=== PATIENT | male | born 1995 | race Caucasian/White ===

== ENCOUNTER 2017-01-31 14:21 | Emergency (ER) | payer MEDICAID | END 2017-01-31 15:23 | disposition home or self-care (01) | DX: M25.571 Pain in right ankle and joints of right foot (principal); X50.9XXA Other and unspecified overexertion or strenuous movements or postures, initial encounter; Y93.E1 Activity, personal bathing and showering; R03.0 Elevated blood-pressure reading, without diagnosis of hypertension; Z86.718 Personal history of other venous thrombosis and embolism; F17.200 Nicotine dependence, unspecified, uncomplicated ==

== ENCOUNTER 2017-12-29 11:00 | Emergency (ER) | payer MEDICAID ==
--- NOTE | 2017-12-29 12:06 | ED Physician Documentation ---
PD HPI LOWER EXT INJURY - Stated complaint Stated Complaint: KNEE PX - Chief complaint Chief Complaint: Ext Problem - History obtained from History obtained from: Patient - History of Present Illness PD HPI LOW EXT INJURY LOCATION: Right, Knee Type of injury: Fall, Twist Where injury occurred: Home Timing - onset: How many days ago (2) Timing - duration: Days Timing - details: Abrupt onset, Still present Worsened by: Moving, Palpating, Other (walking/weight bearing) Associated symptoms: Swelling. No: Weakness, Numbness Contributing factors: Prior ortho surgery (of the right ankle, not of the knee.) . No: Anticoagulated Similar symptoms before: Has not had sx before Recently seen: Not recently seen Review of Systems Constitutional: denies: Fever, Chills Skin: denies: Abrasion (s), Laceration (s) Musculoskeletal: reports: Joint swelling Neurologic: reports: Focal weakness. denies: Numbness PD PAST MEDICAL HISTORY - Past Medical History Past Medical History: Yes Cardiovascular: Deep vein thrombosis Respiratory: None Neuro: None Endocrine/Autoimmune: Other GI: None : None HEENT: None Psych: Anxiety Musculoskeletal: Other Derm: Eczema - Past Surgical History Past Surgical History: Yes Derm: Other - Present Medications Home Medications: Ambulatory Orders Medication Instructions Recorded Confirmed HYDROcod/ACETAM 5/325 [[place] 5/325] 1 tab PO Q6H PRN #20 tablet 12/29/17 Meloxicam [Mobic] 7.5 mg PO DAILY 12/29/17 busPIRone [Buspar] 10 mg PO BID 12/29/17 - Allergies Allergies/Adverse Reactions: Allergies Allergy/AdvReac Type Severity Reaction Status Date / Time Penicillins Allergy Severe Anaphylaxis Verified 12/29/17 11:09 - Social History Does the pt smoke?: Yes Smoking Status: Current every day smoker Does the pt drink ETOH?: No Does the pt have substance abuse?: No - Immunizations Immunizations are current?: No Immunizations: TDAP >10years/unknown, Other immun current - POLST Patient has POLST: No PD ED PE NORMAL - Vitals Vital signs reviewed: Yes - General General: Alert and oriented X 3, Well developed/nourished - Derm Derm: Normal color, Warm and dry, No rash - Extremities Extremities: No deformity, No edema, No calf tenderness / cord, Other (right knee with moderate effusion. Tender diffusely but mostly medially and popliteal. Guarded ROM and stress testing. Pain worst with valgus stress and feels loose c/w MCL tear. Hurts with ACL stress but not lax. Consider meniscal injury as well. No calf tenderness. ) - Neuro Neuro: Alert and oriented X 3, No motor deficit, No sensory deficit Results - Vitals Vitals: Vital Signs - 24 hr 12/29/17 12/29/17 11:07 12:28 Temperature 36.4 C L 37.0 C Heart Rate 82 75 Respiratory 18 12 Rate Blood Pressure 143/75 H 120/78 O2 Saturation 99 96 Oxygen O2 Source Room air PD MEDICAL DECISION MAKING - ED course Complexity details: considered differential (likely MCL injury and also consider ACL/emniscus. Will treat with knee brace and crutches and recheck with ortho in about a week. ), d/w patient Departure - Departure Disposition: 01 Home, Self Care Clinical Impression: Knee MCL sprain Qualifiers: Encounter type: initial encounter Laterality: right Qualified Code(s): S83.411A - Sprain of medial collateral ligament of right knee, initial encounter Internal knee problem Qualifiers: Laterality: right Qualified Code(s): M23.91 - Unspecified internal derangement of right knee Condition: Stable Record reviewed to determine appropriate education?: Yes Instructions: ED Sprain Knee Follow-Up: Brooke Madrigal ARNP [Primary Care Provider] - Papa Miller MD [Provider Admit Priv/Credential] - Prescriptions: HYDROcod/ACETAM 5/325 [[place] 5/325] 1 tab PO Q6H PRN #20 tablet PRN Reason: Pain Comments: Use a knee brace when up and around for the next 2-3 weeks likely. Use crutches initially as needed for comfort but is okay to progress weightbearing as able. Continue usual medications. Add Tylenol or hydrocodone if needed for pain. Call orthopedics Dr. Panda today for an appointment in about a week to reevaluate the ligaments and see if any imaging or further treatment is appropriate. Discharge Date/Time: 12/29/17 13:05
[2017-12-29 12:28] VITALS: BP 120/78
[2017-12-29] MEDS ORDERED: HYDROcod/ACETAM 5/325 MG TABLET PO STA (12:41)
== END 2017-12-29 13:05 | disposition home or self-care (01) ==
LOC: ED 11:00
DX: S83.411A Sprain of medial collateral ligament of right knee, initial encounter (principal); X50.1XXA Overexertion from prolonged static or awkward postures, initial encounter; Y92.009 Unspecified place in unspecified non-institutional (private) residence as the place of occurrence of the external cause; Z86.718 Personal history of other venous thrombosis and embolism; F17.200 Nicotine dependence, unspecified, uncomplicated
CPT/HCPCS: 99283; A9270

== ENCOUNTER 2018-04-19 16:09 | Emergency (ER) | payer MEDICAID ==
--- NOTE | 2018-04-19 16:55 | XRAY Report ---
Procedure Date: 04/19/2018 Accession Number: [id number] / [id number] Procedure: XR - Ankle 3 View RT CPT Code: FULL RESULT: EXAM: RIGHT ANKLE RADIOGRAPHY EXAM DATE: 04/19/2018 04:20 PM. CLINICAL HISTORY: Twisted ankle yesterday. COMPARISON: Concurrent foot radiograph. Right ankle radiographs 01/31/2017. TECHNIQUE: 3 views. FINDINGS: Bones: No fracture. No suspicious focal osseous lesion. Joints: Normal. No effusion. No subluxations. The ankle mortise is normally aligned. Soft Tissues: No focal soft tissue swelling appreciated. IMPRESSION: No acute osseous abnormality. RADIA
--- NOTE | 2018-04-19 16:57 | XRAY Report ---
Procedure Date: 04/19/2018 Accession Number: [id number] / [id number] Procedure: XR - Foot 3 View RT CPT Code: FULL RESULT: EXAM: RIGHT FOOT RADIOGRAPHY EXAM DATE: 04/19/2018 04:20 PM. CLINICAL HISTORY: History of foot surgery, pain after fall. COMPARISON: Concurrent right ankle radiographs. Right foot radiograph 03/18/2016. TECHNIQUE: 3 views. FINDINGS: Bones: No acute displaced fracture. No suspicious focal osseous lesion. Post interval resection of the accessory navicular. Joints: Normal. No subluxations. Soft Tissues: Normal. No soft tissue swelling. IMPRESSION: No acute osseous abnormality post remote resection of os navicular. RADIA
--- NOTE | 2018-04-19 16:57 | ED Physician Documentation ---
PD HPI LOWER EXT INJURY - Stated complaint Stated Complaint: R ANKLE INJ - Chief complaint Chief Complaint: Ext Problem - History obtained from History obtained from: Patient - History of Present Illness PD HPI LOW EXT INJURY LOCATION: Right, Ankle, Foot Type of injury: Twist Where injury occurred: Home Timing - onset: Today Timing - details: Abrupt onset, Still present Worsened by: Moving Associated symptoms: Swelling (mild). No: Weakness, Numbness Recently seen: Not recently seen Review of Systems Skin: denies: Abrasion (s), Laceration (s) Musculoskeletal: reports: Joint pain (around the back of the ankle) Neurologic: denies: Focal weakness, Numbness PD PAST MEDICAL HISTORY - Past Medical History Cardiovascular: Deep vein thrombosis Respiratory: None Endocrine/Autoimmune: Other GI: None : None HEENT: None Psych: Anxiety Musculoskeletal: Other Derm: Eczema - Past Surgical History Past Surgical History: Yes Derm: Other - Present Medications Home Medications: Ambulatory Orders Medication Instructions Recorded Confirmed HYDROcod/ACETAM 5/325 [[place] 5/325] 1 tab PO Q6H PRN #20 tablet 12/29/17 Meloxicam [Mobic] 7.5 mg PO DAILY 12/29/17 busPIRone [Buspar] 10 mg PO BID 12/29/17 HYDROcod/ACETAM 5/325 [[place] 5/325] 1 tab PO Q6H PRN #15 tablet 04/19/18 - Allergies Allergies/Adverse Reactions: Allergies Allergy/AdvReac Type Severity Reaction Status Date / Time Penicillins Allergy Severe Anaphylaxis Verified 12/29/17 11:09 - Social History Does the pt smoke?: Yes Smoking Status: Current every day smoker Does the pt drink ETOH?: No Does the pt have substance abuse?: No - Immunizations Immunizations are current?: No Immunizations: TDAP >10years/unknown, Other immun current - POLST Patient has POLST: No PD ED PE NORMAL - Vitals Vital signs reviewed: Yes - General General: Alert and oriented X 3, No acute distress, Well developed/nourished - Derm Derm: Normal color, Warm and dry, No rash - Extremities Extremities: Other (right ankle tender laterally and also in Achilles area but the tendon feels firma nd intact. ) - Neuro Neuro: No motor deficit, No sensory deficit Results - Vitals Vitals: Oxygen O2 Source Room air - Rads (name of study) foot and ankle xrays Radiology: Prelim report reviewed (no fractures), EMP read contemporaneously PD MEDICAL DECISION MAKING - ED course Complexity details: considered differential, d/w patient - Sepsis Event Vital Signs: Oxygen O2 Source Room air Departure - Departure Disposition: 01 Home, Self Care Clinical Impression: Ankle sprain Qualifiers: Encounter type: initial encounter Involved ligament of ankle: anterior talofibular ligament Laterality: right Qualified Code(s): S93.491A - Sprain of other ligament of right ankle, initial encounter Strain of Achilles tendon Qualifiers: Encounter type: initial encounter Laterality: right Qualified Code(s): S86.011A - Strain of right Achilles tendon, initial encounter Condition: Stable Record reviewed to determine appropriate education?: Yes Instructions: ED Sprain Ankle W X Ray Follow-Up: Brooke Madrigal ARNP [Primary Care Provider] - Prescriptions: HYDROcod/ACETAM 5/325 [[place] 5/325] 1 tab PO Q6H PRN #15 tablet PRN Reason: Pain Comments: Use the boot orthosis to support the ankle and foot while healing. Wear it for the next 2 or 3 weeks until fully healed. Crutches as needed for comfort of weightbearing with partial to no weightbearing initially and progress as able. Continue usual ibuprofen to 3 times a day. Add Tylenol or hydrocodone if needed for pain. Recheck if not better over the next week. Discharge Date/Time: 04/19/18 17:36
[2018-04-19] MEDS ORDERED: HYDROcod/ACETAM 5/325 MG TABLET PO STA (17:22)
[2018-04-19 17:39] VITALS: BP 133/83
== END 2018-04-19 17:36 | disposition home or self-care (01) ==
LOC: ED 16:09
DX: S93.491A Sprain of other ligament of right ankle, initial encounter (principal); S86.011A Strain of right Achilles tendon, initial encounter; F17.200 Nicotine dependence, unspecified, uncomplicated; Z79.1 Long term (current) use of non-steroidal anti-inflammatories (NSAID); X50.1XXA Overexertion from prolonged static or awkward postures, initial encounter; Y92.009 Unspecified place in unspecified non-institutional (private) residence as the place of occurrence of the external cause
CPT/HCPCS: 73610; 73630; 99283; A9270

== ENCOUNTER 2018-08-16 12:52 | Emergency (ER) | payer MEDICAID ==
[2018-08-16 12:59] VITALS: BP 149/80
--- NOTE | 2018-08-16 13:53 | XRAY Report ---
Reason: pain Procedure Date: 08/16/2018 Accession Number: [id number] / [id number] Procedure: XR - Foot 3 View RT CPT Code: FULL RESULT: EXAM: RIGHT FOOT RADIOGRAPHY EXAM DATE: 08/16/2018 01:24 PM. CLINICAL HISTORY: Pain. COMPARISON: FOOT 3 VIEW RT 04/19/2018 4:20 PM. TECHNIQUE: 3 views. FINDINGS: Bones: Normal. No fractures or bone lesions. Joints: Normal. No subluxations. Soft Tissues: Normal. No soft tissue swelling. IMPRESSION: No fracture or dislocation is identified. RADIA
--- NOTE | 2018-08-16 14:05 | ED Physician Documentation ---
PD HPI LOWER EXT INJURY - Stated complaint Stated Complaint: R ANKLE PX - Chief complaint Chief Complaint: Ext Problem - Additional information Additional information: 23-year-old male with a history of chronic right foot pain and multiple zhang rgeries presents to the emergency department with increasing pain on the bottom of his right foot. Last week the patient was at physical therapy and reportedly had a harder than normal session. The patient has had ongoing pain. No relieving factors. No reports of leg, knee or hip pain. No other associated symptoms. Review of Systems Constitutional: denies: Fever Eyes: denies: Discharge Respiratory: denies: Cough Musculoskeletal: reports: Extremity pain. denies: Extremity swelling, Joint swelling Neurologic: denies: Generalized weakness Immunocompromised: denies: Chemotherapy PD PAST MEDICAL HISTORY - Past Medical History Cardiovascular: Deep vein thrombosis Respiratory: None Endocrine/Autoimmune: Other GI: None : None HEENT: None Psych: Anxiety Musculoskeletal: Other Derm: Eczema - Past Surgical History Past Surgical History: Yes Derm: Other - Present Medications Home Medications: Ambulatory Orders Medication Instructions Recorded Confirmed HYDROcod/ACETAM 5/325 [[place] 5/325] 1 tab PO Q6H PRN #20 tablet 12/29/17 Meloxicam [Mobic] 7.5 mg PO DAILY 12/29/17 busPIRone [Buspar] 10 mg PO BID 12/29/17 HYDROcod/ACETAM 5/325 [[place] 5/325] 1 tab PO Q6H PRN #15 tablet 04/19/18 - Allergies Allergies/Adverse Reactions: Allergies Allergy/AdvReac Type Severity Reaction Status Date / Time Penicillins Allergy Severe Anaphylaxis Verified 12/29/17 11:09 - Social History Does the pt smoke?: Yes Smoking Status: Current every day smoker Does the pt drink ETOH?: No Does the pt have substance abuse?: No - Immunizations Immunizations are current?: No Immunizations: TDAP >10years/unknown, Other immun current - POLST Patient has POLST: No PD ED PE NORMAL - General General: Alert and oriented X 3, No acute distress - HEENT HEENT: Atraumatic, PERRL, EOMI - Extremities Extremities: No deformity, Normal ROM s pain, No edema. No: No tenderness to palpate - Neuro Neuro: Alert and oriented X 3, Normal speech - Psych Psych: Normal mood PD ED PE EXPANDED - Extremities Feet visual: 1 - tenderness (The patient is tender along the plantar tendon. There is no obvious deformity, there is normal range of motion. There is brisk cap refill. There is no evidence of a infectious etiology.) Results - Vitals Vitals: Vital Signs - 24 hr 08/16/18 12:56 Temperature 35.9 C L Heart Rate 88 Respiratory 16 Rate Blood Pressure 149/80 H O2 Saturation 99 Oxygen O2 Source Room air - Rads (name of study) Foot XR Radiology: Final report received PD MEDICAL DECISION MAKING - ED course ED course: The patient has ongoing foot related problems, the patient's had multiple surgeries. Today on x-ray there is no evidence of an acute bony injury. The patient's pain may be secondary to plantar fasciitis. The patient will be placed in a walking boot and given crutches. I recommended that the patient follow-up with his orthopedic surgeon for further workup and management. The patient understands and agrees. I discussed warning signs and recommended returning to the emergency department immediately for any worsening or any concerns. Departure - Departure Disposition: 01 Home, Self Care Clinical Impression: Foot pain Qualifiers: Laterality: right Qualified Code(s): M79.671 - Pain in right foot Condition: Good Instructions: ED Plantar Fasciitis Follow-Up: Paap Miller MD [Provider Admit Priv/Credential] - Within 1 week Comments: Please return to the emergency department for worsening symptoms or any concerns
== END 2018-08-16 14:39 | disposition home or self-care (01) ==
LOC: ED 12:52
DX: M79.671 Pain in right foot (principal); I82.409 Acute embolism and thrombosis of unspecified deep veins of unspecified lower extremity; F17.200 Nicotine dependence, unspecified, uncomplicated
CPT/HCPCS: 99283

== ENCOUNTER 2019-01-01 15:07 | Emergency (ER) | payer MEDICAID ==
[2019-01-01 15:57] VITALS: BP 123/74
--- NOTE | 2019-01-01 16:33 | ED Physician Documentation ---
PD HPI LOWER EXT INJURY - Stated complaint Stated Complaint: RT KNEE PX - Chief complaint Chief Complaint: Ext Problem - History obtained from History obtained from: Patient - History of Present Illness PD HPI LOW EXT INJURY LOCATION: Right (He has long-standing right knee pain, was in physical therapy for same but has not been in a few weeks and it flared up again. He feels like his knee is unstable and describes lateral knee pain and sometimes it locks up on him.) Review of Systems Constitutional: denies: Fever, Chills Cardiac: reports: Reviewed and negative Respiratory: reports: Reviewed and negative GI: reports: Reviewed and negative PD PAST MEDICAL HISTORY - Past Medical History Cardiovascular: Deep vein thrombosis Respiratory: None Endocrine/Autoimmune: Other GI: None : None HEENT: None Psych: Anxiety Musculoskeletal: Other Derm: Eczema - Past Surgical History Past Surgical History: Yes Derm: Other - Present Medications Home Medications: Ambulatory Orders Medication Instructions Recorded Confirmed HYDROcod/ACETAM 5/325 [[place] 5/325] 1 tab PO Q6H PRN #20 tablet 12/29/17 Meloxicam [Mobic] 7.5 mg PO DAILY 12/29/17 busPIRone [Buspar] 10 mg PO BID 12/29/17 HYDROcod/ACETAM 5/325 [[place] 5/325] 1 tab PO Q6H PRN #15 tablet 04/19/18 Hydrocodone/Acetaminophen 1 - 2 each PO Q6H PRN #10 tablet 01/01/19 [Hydrocodon-Acetaminophen 5-325] Meloxicam [Mobic] 7.5 mg PO BID PRN #20 tablet 01/01/19 - Allergies Allergies/Adverse Reactions: Allergies Allergy/AdvReac Type Severity Reaction Status Date / Time Penicillins Allergy Severe Anaphylaxis Verified 12/29/17 11:09 - Social History Does the pt smoke?: Yes Smoking Status: Current every day smoker Does the pt drink ETOH?: No Does the pt have substance abuse?: No - Immunizations Immunizations are current?: No Immunizations: TDAP >10years/unknown, Other immun current - POLST Patient has POLST: No PD ED PE NORMAL - Vitals Vital signs reviewed: Yes - General General: Alert and oriented X 3, No acute distress - Extremities Extremities: Other (Right knee is without effusion. He is tender over the lateral joint line and also over the IT band, negative grind testing and no laxity on ligamentous testing.) - Neuro Neuro: Alert and oriented X 3, Normal speech Results - Vitals Vitals: Vital Signs - 24 hr 01/01/19 15:49 Temperature 37.2 C Heart Rate 86 Respiratory 16 Rate Blood Pressure 123/74 O2 Saturation 100 Oxygen O2 Source Room air PD MEDICAL DECISION MAKING - ED course ED course: 23-year-old gentleman with with what seems like IT band syndrome and exacerbation of same. He wanted a splint, but advised he should only wear it for a few days and do stretching which we discussed and he will follow-up with his orthopedic surgeon. Departure - Departure Disposition: Home, Self Care Clinical Impression: IT band syndrome Qualifiers: Laterality: right Qualified Code(s): M76.31 - Iliotibial band syndrome, right leg Condition: Good Record reviewed to determine appropriate education?: Yes Instructions: Iliotibial Band Stretch, IT Band Syndrome About Follow-Up: Papa Miller MD [Provider Admit Priv/Credential] - Prescriptions: Hydrocodone/Acetaminophen [Hydrocodon-Acetaminophen 5-325] 1 - 2 each PO Q6H PRN #10 tablet PRN Reason: pain Meloxicam [Mobic] 7.5 mg PO BID PRN #20 tablet PRN Reason: Pain Comments: Call your doctor to arrange a follow-up appointment, make the next available appointment. In the interim, return anytime if worse or if new symptoms develop.
== END 2019-01-01 16:59 | disposition home or self-care (01) ==
LOC: ED 15:07
DX: M76.31 Iliotibial band syndrome, right leg (principal); Z86.718 Personal history of other venous thrombosis and embolism; F17.200 Nicotine dependence, unspecified, uncomplicated
CPT/HCPCS: 99283

== ENCOUNTER 2019-04-28 17:25 | Emergency (ER) | payer MEDICAID ==
[2019-04-28 17:29] VITALS: BP 148/81
--- NOTE | 2019-04-28 17:36 | ED Physician Documentation ---
PD HPI LOWER EXT INJURY - Stated complaint Stated Complaint: R KNEE PX - Chief complaint Chief Complaint: Ext Problem - History obtained from History obtained from: Patient - History of Present Illness PD HPI LOW EXT INJURY LOCATION: Right, Knee, Thigh Type of injury: Twist (his foot slid on wet floor at work, and he felt pain right anterior thigh to knee area. No swelling of the knee. stiff for extension.). No: Fall Where injury occurred: Work (worse knee pain today with slip. 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 No: Palpating Associated symptoms: Other (stiffness in knee extension.). No: Weakness, Numbness, Swelling Contributing factors: No: Anticoagulated, Prior ortho surgery Similar symptoms before: Diagnosis (somewhat different pains in leg and knee, but has had some knee problems and is getting PT through Ortho provider. Has not had MRI.) Review of Systems Constitutional: denies: Fever, Chills Skin: denies: Rash, Lesions, Abrasion (s), Laceration (s) Neurologic: denies: Focal weakness, Numbness PD PAST MEDICAL HISTORY - Past Medical History Cardiovascular: Deep vein thrombosis Respiratory: None Endocrine/Autoimmune: Other GI: None : None HEENT: None Psych: Anxiety Musculoskeletal: Other Derm: Eczema - Past Surgical History Past Surgical History: Yes Derm: Other - Present Medications Home Medications: Ambulatory Orders Medication Instructions Recorded Confirmed Hydrocodone/Acetaminophen [[place] 1 each PO Q6H PRN #20 tablet 04/28/19 5-325 Tablet] dexAMETHasone [Decadron] 4 mg PO DAILY #5 tablet 04/28/19 - Allergies Allergies/Adverse Reactions: Allergies Allergy/AdvReac Type Severity Reaction Status Date / Time Penicillins Allergy Severe Anaphylaxis Verified 04/28/19 17:29 - Social History Does the pt smoke?: Yes Smoking Status: Current every day smoker Does the pt drink ETOH?: No Does the pt have substance abuse?: No - Immunizations Immunizations are current?: No Immunizations: TDAP >10years/unknown, Other immun current - POLST Patient has POLST: No PD ED PE NORMAL - Vitals Vital signs reviewed: Yes - General General: Alert and oriented X 3, No acute distress, Well developed/nourished - Derm Derm: Normal color, Warm and dry, No rash - Extremities Extremities: Other (right anterior thigh with some tenderness. Tender at muscle. The patellar tendon is somewhat tender, but is intact. No effusion of the knee. Some tender with meniscal stressing. ) Results - Vitals Vitals: Vital Signs - 24 hr 04/28/19 17:27 Temperature 36.9 C Heart Rate 76 Respiratory 18 Rate Blood Pressure 148/81 H O2 Saturation 99 Oxygen O2 Source Room air PD MEDICAL DECISION MAKING - ED course Complexity details: reviewed results (no real indication for xrays), considered differential (has had problems with knee/leg with IT band tendonitis and some knee pains concerning for meniscal. Getting PT now through Ortho, and has appt again next week. Now with new pain right anterior knee after sliding some on floor with right foot and feeling pain anterior right thigh to anterior knee. Pain with flex/ext. No effusion per se. ), d/w patient Departure - Departure Disposition: 01 Home, Self Care Clinical Impression: Strain of knee Qualifiers: Encounter type: initial encounter Laterality: right Qualified Code(s): S86.911A - Strain of unspecified muscle(s) and tendon(s) at lower leg level, right leg, initial encounter Condition: Stable Record reviewed to determine appropriate education?: Yes Instructions: ED Meniscal Injury Knee Poss Follow-Up: Paige Kim PA [Primary Care Provider] - [facility] [Provider Group] Prescriptions: dexAMETHasone [Decadron] 4 mg PO DAILY #5 tablet Hydrocodone/Acetaminophen [[place] 5-325 Tablet] 1 each PO Q6H PRN #20 tablet PRN Reason: Pain Comments: Use the articulating knee brace when up and around. Have a set to just been slightly to provide support for the ligaments and cartilage. Use some anti- inflammatories such as naproxen or ibuprofen twice daily. Add Decadron steroid anti-inflammatory daily for 5 days. Use Tylenol or hydrocodone as needed for pain. I wrote a work note for no deep knee bending or squatting for a week and also minimal/reduced standing and walking for a week at work. Follow-up with orthopedics, call for an appointment. Forms: Activity restrictions Discharge Date/Time: 04/28/19 18:40
[2019-04-28] MEDS ORDERED: CHERRY SYRUP 10 ML UDC PO ONE (17:57)
[2019-04-28] MEDS ORDERED: HYDROcod/ACETAM 5/325 MG TABLET PO STA (17:57)
[2019-04-28] MEDS ORDERED: DEXAMETHASONE 10 MG/ML VIAL PO STA (17:57)
[2019-04-28] MEDS ORDERED: NAPROXEN 250 MG TABLET PO STA (17:57)
== END 2019-04-28 18:40 | disposition home or self-care (01) ==
LOC: ED 17:25
DX: S86.911A Strain of unspecified muscle(s) and tendon(s) at lower leg level, right leg, initial encounter (principal); X50.1XXA Overexertion from prolonged static or awkward postures, initial encounter; Y92.89 Other specified places as the place of occurrence of the external cause; Y99.0 Civilian activity done for income or pay; F17.200 Nicotine dependence, unspecified, uncomplicated
CPT/HCPCS: 99282; 99283; A9270

== ENCOUNTER 2019-07-02 12:15 | Outpatient (CLI) | payer MEDICAID ==
--- NOTE | 2019-07-04 09:59 | MRI Report ---
Reason: INTERNAL DERANGEMENT, RIGHT KNEE Procedure Date: 07/02/2019 Accession Number: [id number] / [id number] Procedure: MRI - Knee RT W/O CPT Code: FULL RESULT: EXAM: RIGHT KNEE MRI WITHOUT CONTRAST EXAM DATE: 07/02/2019 01:01 PM. CLINICAL HISTORY: Internal derangement of the right knee. Lateral right knee pain. COMPARISON: 01/07/2018 radiograph. TECHNIQUE: Multiplanar, multisequence T1-weighted and fluid-sensitive sequences of the knee without contrast. Other: None. FINDINGS: Cruciate ligaments: The anterior posterior cruciate ligaments appear intact. Medial meniscus: Intact. No tear is identified. Lateral meniscus: Intact. No tear is identified. Collateral ligaments: The medial and fibular collateral ligaments appear intact. Bones and articular surfaces: No osteochondral lesions. No significant articular cartilage defects are seen. Sclerotic focus in the proximal tibial metaphysis consistent with bone island. Small fibrous cortical defect at the posterior margin of the distal femur. No fracture. No destructive bone lesion. There is some thickening and edema involving the medial margin of the suprapatellar quadriceps fat pad and in the expected region of medial plica. Possibility of medial plica syndrome. Extensor mechanism: The patellar tendon and quadriceps insertion appear intact. Trace amount of edema involving the deep upper fibers of the patellar tendon. IMPRESSION: 1. Possible mild proximal patellar tendinitis. 2. There is some thickening and edema involving the medial margin of the suprapatellar quadriceps fat pad and in the expected region of medial plica. Possibility of medial plica syndrome. 3. No evidence of internal derangement. The menisci, cruciate and collateral ligaments appear intact. RADIA
== END 2019-07-02 12:16 | disposition home or self-care (01) ==
LOC: DI 12:15
PROVIDERS: ATTEND Family Medicine
DX: M23.91 Unspecified internal derangement of right knee (principal)

== ENCOUNTER 2019-07-15 11:58 | Emergency (ER) | payer OTHER, MEDICAID ==
[2019-07-15 12:09] VITALS: BP 127/83
[2019-07-15] MEDS ORDERED: BUFFERED LIDOCAINE 10 ML SYRINGE SUBQ STA (12:40)
[2019-07-15] MEDS ORDERED: oxyCODONE 5 MG TABLET PO STA (12:40)
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
--- NOTE | 2019-07-15 13:19 | XRAY Report ---
Reason: leg inj Procedure Date: 07/15/2019 Accession Number: [id number] / [id number] Procedure: XR - Tib/Fib LT CPT Code: FULL RESULT: EXAM: LEFT TIBIA/FIBULA RADIOGRAPHY EXAM DATE: 07/15/2019 12:54 PM. CLINICAL HISTORY: Leg injury. COMPARISON: None. TECHNIQUE: 2 views. FINDINGS: Bones: Normal. No fracture or bone lesion. Joints: The visualized knee and ankle joints are normal. No effusions. Soft Tissues: Normal. No soft tissue swelling. IMPRESSION: No abnormalities detected. [facility]
== END 2019-07-15 13:15 | disposition home or self-care (01) ==
LOC: ED 11:58
DX: S80.12XA Contusion of left lower leg, initial encounter (principal); W50.0XXA Accidental hit or strike by another person, initial encounter; Y99.0 Civilian activity done for income or pay; F17.200 Nicotine dependence, unspecified, uncomplicated
CPT/HCPCS: 1040M; 20950; 73590; 99283; A9270

== ENCOUNTER 2019-09-19 15:10 | Emergency (ER) | payer MEDICAID ==
--- NOTE | 2019-09-19 16:08 | XRAY Report ---
Reason: GLF, pain Procedure Date: 09/19/2019 Accession Number: [id number] / [id number] Procedure: XR - Toe(s) RT CPT Code: Final Report FULL RESULT: EXAM: RIGHT TOE RADIOGRAPHY EXAM DATE: 09/19/2019 03:23 PM. CLINICAL HISTORY: GLF, pain. COMPARISON: FOOT 3 VIEW RT 08/16/2018 1:17 PM. TECHNIQUE: 3 views. FINDINGS: Bones: No fracture or bone lesion identified. Joints: No significant degenerative process seen. No subluxations. Soft Tissues: No soft tissue radiopaque foreign body seen. IMPRESSION: Negative right first toe x-ray. [facility]
--- NOTE | 2019-09-19 16:14 | XRAY Report ---
Reason: fall, knee and jaw pain Procedure Date: 09/19/2019 Accession Number: [id number] / [id number] Procedure: XR - Knee 4 View RT CPT Code: Final Report FULL RESULT: EXAM: RIGHT KNEE RADIOGRAPHY EXAM DATE: 09/19/2019 03:51 PM. CLINICAL HISTORY: Fall, knee and jaw pain. COMPARISON: None. TECHNIQUE: 3 views. FINDINGS: Bones: No fracture is detected. A Hyperdense well-demarcated lesion in the proximal tibia shows no aggressive features. Joints: There is a prominent joint effusion. No dislocation. Soft Tissues: Normal. No soft tissue swelling. IMPRESSION: Joint effusion without visualized fracture or dislocation. RAD[facility]
--- NOTE | 2019-09-19 16:43 | ED Physician Documentation ---
PD HPI LOWER EXT INJURY - Stated complaint Stated Complaint: R KNEE/FOOT PX/ JAW PX - Chief complaint Chief Complaint: Ext Problem - History obtained from History obtained from: Patient - History of Present Illness PD HPI LOW EXT INJURY LOCATION: Right, Knee, Foot, Toe, Other (Left jaw pain) Type of injury: Fall Where injury occurred: Home Timing - onset: How many weeks ago (1) Timing - duration: Weeks (1) Timing - details: Abrupt onset Improved by: Rest, Ice Worsened by: Moving, Palpating Associated symptoms: No: Weakness, Numbness, Tingling, Swelling, Discolored Contributing factors: No: Anticoagulated, Prior ortho surgery, Prosthetic joint, Work related Similar symptoms before: Has not had sx before Recently seen: Not recently seen - Additional information Additional information: Pt fell on a child's toy in his home about a week ago, since then has R knee pain, crunching between his toes on the R side, and left jaw pain Review of Systems Ten Systems: 10 systems reviewed and negative Constitutional: denies: Fever Eyes: reports: Reviewed and negative Ears: reports: Reviewed and negative Nose: reports: Reviewed and negative Throat: reports: Reviewed and negative Cardiac: denies: Chest pain / pressure Respiratory: denies: Dyspnea GI: denies: Abdominal Pain, Nausea, Vomiting : reports: Reviewed and negative Skin: reports: Reviewed and negative Musculoskeletal: reports: Extremity pain, Joint pain. denies: Neck pain, Back pain Neurologic: denies: Generalized weakness, Focal weakness, Numbness Psychiatric: reports: Anxiety Immunocompromised: reports: Reviewed and negative PD PAST MEDICAL HISTORY - Past Medical History Past Medical History: Yes Cardiovascular: Deep vein thrombosis Respiratory: None Endocrine/Autoimmune: Other GI: None : None HEENT: None Psych: Anxiety Musculoskeletal: Other Derm: Eczema - Past Surgical History Past Surgical History: Yes Derm: Other - Present Medications Home Medications: Ambulatory Orders Medication Instructions Recorded Confirmed Hydrocodone/Acetaminophen [[place] 1 each PO Q6H PRN #20 tablet 04/28/19 5-325 Tablet] dexAMETHasone [Decadron] 4 mg PO DAILY #5 tablet 04/28/19 Oxycodone HCl/Acetaminophen 1 - 2 each PO Q6H PRN #14 tablet 07/15/19 [Percocet 5-325 mg Tablet] - Allergies Allergies/Adverse Reactions: Allergies Allergy/AdvReac Type Severity Reaction Status Date / Time Penicillins Allergy Severe Anaphylaxis Verified 07/15/19 12:06 - Social History Does the pt smoke?: Yes Smoking Status: Current every day smoker Does the pt drink ETOH?: No Does the pt have substance abuse?: No - Immunizations Immunizations are current?: No Immunizations: TDAP >10years/unknown, Other immun current - POLST Patient has POLST: No PD ED PE NORMAL - Vitals Vital signs reviewed: Yes - General General: Alert and oriented X 3, No acute distress, Well developed/nourished - HEENT HEENT: Atraumatic, Moist mucous membranes, Pharynx benign, Other (no trismus, no jaw swelling, tenderness or deformity, no drooling, full ROM ) - Neck Neck: Supple, no meningeal sign, No bony TTP - Cardiac Cardiac: RRR - Respiratory Respiratory: No respiratory distress, Clear bilaterally - Male Male : Deferred - Rectal Rectal: Deferred - Derm Derm: Normal color, Warm and dry, No rash - Extremities Extremities: No deformity, Normal ROM s pain, No calf tenderness / cord, Other (full ROm of the foot and knee, R knee with mild swelling laterall, pt is fully weight bearing ) - Neuro Neuro: Alert and oriented X 3, No motor deficit, No sensory deficit, Normal speech Eye Opening: Spontaneous Motor: Obeys Commands Verbal: Oriented GCS Score: 15 - Psych Psych: Normal mood, Normal affect PD ED PE EXPANDED - Extremities Extremities: Tenderness, Swelling, Right knee (mild effusion ), Motor intact, Sensory intact, Vascular intact, Tendon intact. No: Deformity, Limited ROM, Bruising, Abrasion, Laceration Results - Vitals Vitals: Oxygen O2 Source Room air - Rads (name of study) Mandible xray Radiology: Final report received (negative ), EMP read contemporaneously, See rad report R first toe xray Radiology: Final report received, EMP read contemporaneously, See rad report (negative ) R knee xray Radiology: Final report received, EMP read contemporaneously, See rad report PD MEDICAL DECISION MAKING - ED course Complexity details: reviewed results, re-evaluated patient, considered differential, d/w patient ED course: 24 y/o M with hx and exam as documented, has normal imaging except a mild R knee effusion. No evidence of fx, injuries several days ago, pt ambulating around with minimal difficulty. provided him with an norm wrap here as he already has a knee immobilizer at home. advised continued nsaids, RICE. Stable for discharge with outpt f/u and return precautions if new concerning symptoms. Departure - Departure Disposition: 01 Home, Self Care Clinical Impression: Knee effusion, right, Sprain of ankle or foot, right Contusion of jaw Qualifiers: Encounter type: initial encounter Qualified Code(s): S00.83XA - Contusion of other part of head, initial encounter Condition: Stable Record reviewed to determine appropriate education?: Yes Instructions: ED Effusion Knee Follow-Up: Paige Kim PA [Primary Care Provider] - As Needed Comments: Your xrays today show some fluid on your right knee consistent with injuries from your fall and a knee sprain. There is no fracture on xrays of your foot or mandible. Continue ibuprofen, tylenol and ice for pain. You can use the provided norm wrap on your Right knee. Use your knee immobilizer at home if your symptoms worsen. Forms: Activity restrictions Discharge Date/Time: 09/19/19 17:05
--- NOTE | 2019-09-19 16:48 | XRAY Report ---
Reason: fall, knee and jaw pain Procedure Date: 09/19/2019 Accession Number: [id number] / [id number] Procedure: XR - Mandible Bilat CPT Code: Final Report FULL RESULT: EXAM: MANDIBLE RADIOGRAPHY EXAM DATE: 09/19/2019 03:42 PM. HISTORY: Fall, pain. COMPARISONS: None. TECHNIQUE: 4 views. FINDINGS: Bones: Normal. No fractures or bone lesions. Temporomandibular Joints: Normal. The temporomandibular joints are normally located and symmetric. Sinuses: Clear. No air-fluid level. Other: Unremarkable. IMPRESSION: Normal mandible radiography. [facility]
[2019-09-19 16:52] VITALS: BP 132/71
== END 2019-09-19 17:05 | disposition home or self-care (01) ==
LOC: ED 15:10
DX: S93.401A Sprain of unspecified ligament of right ankle, initial encounter (principal); S93.601A Unspecified sprain of right foot, initial encounter; M25.461 Effusion, right knee; S00.83XA Contusion of other part of head, initial encounter; W18.31XA Fall on same level due to stepping on an object, initial encounter; Y92.009 Unspecified place in unspecified non-institutional (private) residence as the place of occurrence of the external cause; F17.200 Nicotine dependence, unspecified, uncomplicated
CPT/HCPCS: 70110; 73660; 99282; 99284

== ENCOUNTER 2019-09-26 15:42 | Outpatient (CLI) | payer MEDICAID ==
--- NOTE | 2019-09-27 17:48 | XRAY Report ---
Reason: RIGHT ANKLE JOINT PAIN Procedure Date: 09/26/2019 Accession Number: [id number] / [id number] Procedure: WCP - Ankle 3 View RT CPT Code: Final Report FULL RESULT: EXAM: RIGHT ANKLE RADIOGRAPHY EXAM DATE: 09/26/2019 03:42 PM. CLINICAL HISTORY: RIGHT ANKLE JOINT PAIN. COMPARISON: ANKLE 3 VIEW RT 04/19/2018 4:20 PM. TECHNIQUE: 3 views. FINDINGS: Bones: No definite fracture or other bone lesion. Small fibrous cortical defect again noted in mid fibula. Joints: Normal. No effusion. No subluxations. The ankle mortise is normally aligned. Soft Tissues: Unremarkable. IMPRESSION: No acute disease. RADIA
== END 2019-09-26 23:59 | disposition home or self-care (01) ==
LOC: DI.WCP 15:42
PROVIDERS: ATTEND Physician Assistant
DX: M25.571 Pain in right ankle and joints of right foot (principal)

== ENCOUNTER 2019-11-16 15:00 | Emergency (ER) | payer OTHER, MEDICAID ==
[2019-11-16 15:07] VITALS: BP 129/86
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
[2019-11-16] MEDS ORDERED: HYDROcod/ACETAM 5/325 MG TABLET PO STA (15:21)
== END 2019-11-16 15:41 | disposition home or self-care (01) ==
LOC: ED 15:00
DX: S80.12XA Contusion of left lower leg, initial encounter (principal); W50.0XXA Accidental hit or strike by another person, initial encounter; Y92.219 Unspecified school as the place of occurrence of the external cause; Y99.0 Civilian activity done for income or pay; Z86.718 Personal history of other venous thrombosis and embolism; F17.200 Nicotine dependence, unspecified, uncomplicated
CPT/HCPCS: 99282; 99284; A9270

== ENCOUNTER 2020-11-12 11:50 | Emergency (ER) | payer OTHER, MEDICAID ==
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
--- NOTE | 2020-11-12 13:06 | CT Report ---
PROCEDURE: CERVICAL SPINE WO INDICATIONS: head inj TECHNIQUE: Noncontrast 3 mm thick sections acquired from the skull base to the T4 level. Sagittal and coronal r eformats were then constructed. For radiation dose reduction, the following was used: automated exp osure control, adjustment of mA and/or kV according to patient size. COMPARISON: Correlation is made with the accompanying head CT, 11/12/2020 FINDINGS: Image quality: This study is limited by quantum mottle artifact. Bones: No fractures or dislocations. Visualized superior ribs are intact. Soft tissues: Prevertebral soft tissues are normal in thickness. No paravertebral hematomas. No ap ical pneumothoraces. IMPRESSION: No displaced cervical spine fracture can be seen. Reviewed by: Christiano Son MD on 11/12/2020 12:05 PM [facility] Approved by: Christiano Son MD on 11/12/2020 12:05 PM [facility] Station ID: [id number]
--- NOTE | 2020-11-12 13:07 | CT Report ---
PROCEDURE: HEAD WO INDICATIONS: neck inj TECHNIQUE: Noncontrast 4.5 mm thick angled axial sections acquired from the foramen magnum to the vertex. For r adiation dose reduction, the following was used: automated exposure control, adjustment of mA and/or kV according to patient size. COMPARISON: Correlation is made with the accompanying cervical spine CT, 11/12/2020. FINDINGS: Image quality: Excellent. CSF spaces: Basal cisterns are patent. No extra-axial fluid collections. Ventricles are normal in size and shape. Brain: No midline shift. No intracranial masses or hemorrhage. Baltazar-white matter interface is norm al. Skull and face: Calvarium and visualized facial bones are intact, without suspicious lesions. Sinuses: Visualized sinuses and mastoids are clear. IMPRESSION: No significant intracranial abnormality is seen. No intracranial hemorrhage is seen. Reviewed by: Christiano Son MD on 11/12/2020 12:06 PM [facility] Approved by: Christiano Son MD on 11/12/2020 12:06 PM [facility] Station ID: [id number]
[2020-11-12] MEDS ORDERED: ONDANSETRON ODT 4 MG TABLET TL STA (13:16)
[2020-11-12 13:24] VITALS: BP 149/91
== END 2020-11-12 13:23 | disposition home or self-care (01) ==
LOC: ED 11:50
DX: S06.0X0A Concussion without loss of consciousness, initial encounter (principal); Y04.2XXA Assault by strike against or bumped into by another person, initial encounter; Y92.219 Unspecified school as the place of occurrence of the external cause; Y99.0 Civilian activity done for income or pay; F17.200 Nicotine dependence, unspecified, uncomplicated
CPT/HCPCS: 70450; 72125; 99284; Q0162

== ENCOUNTER 2021-02-11 13:25 | Emergency (ER) | payer OTHER, MEDICAID ==
[2021-02-11] MEDS ORDERED: MELOXICAM 7.5 MG TABLET PO STA (13:43)
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
--- OUTSIDE RECORDS SUMMARY | 2021-02-11 13:58 | EXTERNAL MEDICAL SUMMARY RPT | Continuity of Care Document ---
:1995 Demographics Phone Unavailable Preferred Language Unknown Marital Status Unknown Anabaptist Affiliation Unknown Race Unknown Ethnic Group Unknown Author Organization [facility] Address [address] [place] [address] Phone Social History date description facility [id number]
[2021-02-11 14:43] VITALS: BP 132/82
--- NOTE | 2021-02-11 14:58 | XRAY Report ---
PROCEDURE: Knee 4 View RT INDICATIONS: R knee pain s/p lateral blow to knee TECHNIQUE: 4 views of the right knee(s) were acquired. COMPARISON: None. FINDINGS: Bones: No fractures or dislocations. No suspicious bony lesions. Soft tissues: No joint effusion. No suspicious soft tissue calcifications. IMPRESSION: No trauma found. Incidental note is made of a bone island that is ovoid and located with in the posterior lateral medullary space at the metadiaphyseal junction of the proximal tibia on the right. Reviewed by: Yared Stevenson MD on 02/11/2021 2:56 PM PDT Approved by: Yared Stevenson MD on 02/11/2021 2:56 PM PDT Station ID: [id number]
== END 2021-02-11 14:59 | disposition home or self-care (01) ==
LOC: ED 13:25
DX: S83.91XA Sprain of unspecified site of right knee, initial encounter (principal); X58.XXXA Exposure to other specified factors, initial encounter; Y99.0 Civilian activity done for income or pay; Z86.718 Personal history of other venous thrombosis and embolism; F17.200 Nicotine dependence, unspecified, uncomplicated
CPT/HCPCS: 1040M; 73564; A9270

== ENCOUNTER 2021-08-20 10:33 | Emergency (ER) | payer OTHER, MEDICAID ==
--- NOTE | 2021-08-20 11:58 | XRAY Report ---
PROCEDURE: Tib/Fib LT INDICATIONS: Trauma TECHNIQUE: 2 views of the tibia and fibula were acquired. COMPARISON: None FINDINGS: Bones: No fractures or dislocations. No suspicious bony lesions. Soft tissues: No suspicious soft tissue calcifications or masses. IMPRESSION: No gross acute lower leg fracture or dislocation. Reviewed by: Ranjan Tineo MD on 08/20/2021 11:57 AM [facility] Approved by: Ranjan Tineo MD on 08/20/2021 11:57 AM PST Station ID: [id number]
[2021-08-20 12:52] VITALS: BP 122/96
[2021-08-20] MEDS ORDERED: IBUPROFEN 800 MG TABLET PO STA (12:57)
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
== END 2021-08-20 13:16 | disposition home or self-care (01) ==
LOC: ED 10:33
DX: S80.12XA Contusion of left lower leg, initial encounter (principal); W50.0XXA Accidental hit or strike by another person, initial encounter; Y93.89 Activity, other specified; Y92.219 Unspecified school as the place of occurrence of the external cause; F17.200 Nicotine dependence, unspecified, uncomplicated
CPT/HCPCS: 73590; 99282; 99283; A9270

== ENCOUNTER 2022-01-17 12:49 | Outpatient (CLI) | payer MEDICAID ==
[2022-01-17 17:48] LABS: BASOPHILS % (AUTO) 0.4 %; EOSINOPHILS # (AUTO) 0.6 10^3/uL (0.0-0.7); EOSINOPHILS % (AUTO) 7.5 %; HGB - HEMOGLOBIN 14.2 g/dL (14.0-18.0); LYMPHOCYTES # (AUTO) 1.9 10^3/uL (1.5-3.5); LYMPHOCYTES % (AUTO) 25.4 %; MEAN CORPUSCULAR HEMOGLOBIN 30.5 pg (27.0-31.0); MEAN CORPUSCULAR HGB CONC 34.6 g/dL (32.0-36.0); MEAN CORPUSCULAR VOLUME 88.2 fL (80.0-94.0); MEAN PLATELET VOLUME 11.3 fL (7.4-11.4); MONOCYTES # (AUTO) 0.6 10^3/uL (0.0-1.0); MONOCYTES % (AUTO) 7.6 %; NEUTROPHILS # (AUTO) 4.5 10^3/uL (1.5-6.6); NEUTROPHILS % (AUTO) 58.8 %; PLT - PLATELET COUNT 339 10^3/uL (130-450); RED BLOOD COUNT 4.65 10^6/uL (4.70-6.10); WHITE BLOOD COUNT 7.7 x10^3/uL (4.8-10.8)
[2022-01-17 18:07] LABS: ALBUMIN 4.8 g/dL (3.2-5.5); ALBUMIN/GLOBULIN RATIO 1.8 (1.0-2.2); BILIRUBIN,TOTAL 0.7 mg/dL (0.2-1.0); CALCIUM 9.7 mg/dL (8.5-10.3); POTASSIUM 5.1 mmol/L (3.5-5.0); TOTAL PROTEIN 7.5 g/dL (6.7-8.2)
[2022-01-17 18:20] LABS: THYROID STIMULATING HORMONE 1.29 uIU/mL (0.34-5.60)
== END 2022-01-17 12:50 | disposition home or self-care (01) ==
LOC: LAB.N 12:49
PROVIDERS: ATTEND Physician Assistant
DX: Z13.9 Encounter for screening, unspecified (principal)
CPT/HCPCS: 36415; 80053; 84443; 85025

== ENCOUNTER 2022-07-17 09:49 | Day surgery (SDC) | payer MEDICAID ==
[2022-07-17] MEDS ORDERED: LACTATED RINGERS 1,000 ML IV ONE ×2 (10:46→13:32)
[2022-07-17] MEDS ORDERED: BUPIVACAINE 0.25% PF 10 ML VIAL ONE ×2 (11:17→11:31)
[2022-07-17] MEDS ORDERED: LIDOCAINE MPF 2%-EPI 1:200000 20 ML VIAL ONE (11:17)
[2022-07-17] MEDS ORDERED: ePHEDrine 50 MG/ML VIAL IVP PRN (11:24)
[2022-07-17] MEDS ORDERED: NALOXONE 0.4 MG/ML VIAL IVP PRN (11:24)
[2022-07-17] MEDS ORDERED: METOCLOPRAMIDE 10 MG/2 ML VIAL IVP PRN (11:24)
[2022-07-17] MEDS ORDERED: MORPHINE 2 MG/ML CARPUJECT IVP PRN (11:24)
[2022-07-17] MEDS ORDERED: ONDANSETRON 4 MG/2 ML VIAL IVP PRN (11:24)
[2022-07-17] MEDS ORDERED: HYDROmorphone 0.5 MG/0.5 ML SYRINGE IVP PRN (11:24)
[2022-07-17] MEDS ORDERED: ATROPINE ABBOJECT 1 MG/10 ML SYRINGE IVP PRN (11:24)
[2022-07-17] MEDS ORDERED: fentaNYL 100 MCG/2 ML VIAL IVP PRN (11:24)
--- NOTE | 2022-07-17 11:24 | ANESTHESIA ---
Pre-Anesthesia VS, & Labs - Diagnosis anterior trunk lipomas (4) - Procedure excision anterior truck lipomas (4) Vital Signs: Temp Pulse Resp BP Pulse Ox O2 Flow Rate 37 C 61 13 129/79 95 07/17/22 10:20 07/17/22 10:20 07/17/22 10:20 07/17/22 10:20 07/17/22 10:20 Height: 5 ft 9 in Weight (kg): 95.5 kg Body Mass Index: 31.1 BMI Classification: Obese - NPO >8 hours - Lab Results Lab results reviewed: Yes Home Medications and Allergies Home Medications: Ambulatory Orders oxyCODONE ER [OxyCONTIN] 10 mg PO Q6HR PRN 07/08/22 Buspirone HCl 10 mg PO BID 11/12/20 PARoxetine HCl [Paxil] 40 mg PO DAILY 11/12/20 Tramadol HCl [Ultram ER] 300 mg PO DAILY 11/12/20 oxyCODONE ER [OxyCONTIN] 10 mg PO Q6HR PRN 07/08/22 Allergies/Adverse Reactions: Allergies Allergy/AdvReac Type Severity Reaction Status Date / Time Penicillins Allergy Severe Anaphylaxis Verified 08/20/21 10:58 Anes History & Medical History - Anesthetic History Anesthesia Complications: reports: No previous complications Family history of Anesthesia Complications: Denies Family history of Malignant Hyperthermia: Denies - Medical History Cardiovascular: reports: Deep vein thrombosis Pulmonary: reports: None Gastrointestinal: reports: None Urinary: reports: None Musculoskeletal: reports: Other Endocrine/Autoimmune: reports: Other Blood Disorders: reports: None Skin: reports: Eczema Smoking Status: Current every day smoker Psychosocial: reports: Opioid History of Cancer?: No - Surgical History Orthopedic: reports: Other Dermatologic: reports: Other Exam General: Alert, Oriented x3, Cooperative Dental: WNL Mouth Openin Fingerbreadth Neck Mobility: Normal Mallampati classification: II Thyromental Distance: 4-6 cm Respiratory: Lungs clear, Normal breath sounds, No respiratory distress Cardiovascular: Regular rate Neurological: Normal speech Mental/Cognitive Status: Alert/Oriented X3, Normal for patient Plan Anesthesia Type: General Consent for Procedure(s) Verified and Reviewed: Yes Code Status: Attempt Resuscitation ASA classification: 2-Mild systemic disease Is this case an emergency?: No
[2022-07-17] MEDS ORDERED: PROPOFOL 200 MG/20 ML VIAL IVP ONE (11:30)
[2022-07-17] MEDS ORDERED: LIDOCAINE-PF 2% 10 ML AMP SUBQ ONE (11:30)
[2022-07-17] MEDS ORDERED: MIDAZOLAM 2 MG/2 ML VIAL ONE (11:31)
[2022-07-17] MEDS ORDERED: fentaNYL 100 MCG/2 ML VIAL ONE ×2 (11:31→12:50)
[2022-07-17] MEDS ORDERED: LACTATED RINGERS 1,000 ML IV SCH (12:00)
--- NOTE | 2022-07-17 12:20 | HISTORY & PHYSICAL EXAMINATION ---
Chief Complaint - Chief Complaint Chief Complaint: painful lipomas History of Present Illness - History Obtained From Records Reviewed: yes History obtained from: pt Exam Limitations: none - History of Present Illness HPI Comment/Other: growing and now painful anterior trunk lipomas History - Past Medical History Cardiovascular: reports: Deep vein thrombosis Respiratory: reports: None Endocrine/Autoimmune: reports: Other GI: reports: None : reports: None HEENT: reports: None Psych: reports: Depression, Anxiety Musculoskeletal: reports: Other Derm: reports: Eczema MRSA Hx?: Yes - Past Surgical History Ortho: reports: Other Derm: reports: Other - POLST Patient has POLST: No Meds/Allgy - Home Medications Home Medications: Ambulatory Orders Medication Instructions Recorded Confirmed Buspirone HCl 10 mg PO BID 11/12/20 07/08/22 PARoxetine HCl [Paxil] 40 mg PO DAILY 11/12/20 07/08/22 Tramadol HCl [Ultram ER] 300 mg PO DAILY 11/12/20 07/08/22 oxyCODONE ER [OxyCONTIN] 10 mg PO Q6HR PRN 07/08/22 07/08/22 - Allergies Allergies/Adverse Reactions: Allergies Allergy/AdvReac Type Severity Reaction Status Date / Time Penicillins Allergy Severe Anaphylaxis Verified 08/20/21 10:58 Review of Systems - Other Findings Other Findings: 10 pt ros as above otherwise unremarkable Exam - Vital Signs Reviewed Vital Signs: Yes Vital Signs: Vital Signs x48h Temp Pulse Resp BP Pulse Ox 07/17/22 10:20 37 C 61 13 129/79 95 - Physical Exam General Appearance: positive: No acute distress, Alert Eyes Bilateral: positive: PERRL, EOMI ENT: positive: No signs of dehydration Neck: positive: No JVD, Trachea midline Respiratory: positive: No respiratory distress, Breath sounds nml Cardiovascular: positive: Regular rate & rhythm Abdomen: positive: Other (5 symptomatic several cm large anterior trunk lipomas marked) Neurologic/Psychiatric: positive: Oriented x3 Conclusion/Plan - Problem List (1) Lipoma of skin and subcutaneous tissue of trunk Conclusion/Plan: plan excision symptomatic lipomas. parq held and consent obtained - Lab Results Lab results reviewed: Yes
[2022-07-17] MEDS ORDERED: ONDANSETRON 4 MG/2 ML VIAL ONE (12:44)
[2022-07-17] MEDS ORDERED: DEXAMETHASONE 4 MG/ML VIAL ONE (12:44)
[2022-07-17] MEDS ORDERED: BUPIVACAINE 0.25% PF 10 ML VIAL SUBQ ONE (12:48)
[2022-07-17] MEDS ORDERED: oxyCODONE 5 MG TABLET PO PRN (13:30)
[2022-07-17] MEDS ORDERED: KETOROLAC 30 MG/ML VIAL ONE (13:34)
[2022-07-17] MEDS: HYDROmorphone 1 MG/ML CARPUJECT ONE ×2 (13:45→13:53)
[2022-07-17 14:10] VITALS: BP 127/80
[2022-07-17] MEDS ORDERED: oxyCODONE 5 MG TABLET ONE (14:30)
--- NOTE | 2022-07-17 15:04 | ANESTHESIA POST OP EVALUATION ---
Anesthesia Post Eval - Post Anesthesia Eval Vitals: Last Vital Signs Temp 36.9 C 07/17/22 14:09 Pulse 72 07/17/22 14:09 Resp 11 L 07/17/22 14:09 BP 127/80 07/17/22 14:09 Pulse Ox 94 07/17/22 14:09 O2 Flow Rate CV Function Including HR & BP: Stable Pain Control: Satisfactory Nausea & Vomiting: Negative Mental Status: Baseline Respiratory Status: Airway Patent Hydration Status: Satisfactory Anesthesia Complications: None
--- NOTE | 2022-07-17 15:14 | OPERATIVE REPORT ---
Operative Report - General Procedure Date: 07/17/22 Planned Procedure: excision anterior trunk subcutaneous symptomatic lipomas Pre-Op Diagnosis: 5 symptomatic lipomas anterior trunk Procedure Performed: excision lipomas; 4 3cm lipomas and 1 4 cm lipoma 5 intermediate incision repairs each measuring 3 to 4 cm Post Op Diagnosis: same - Procedure Note Primary Surgeon: magen marin Anesthesia Technique: General LMA, Local Pathology: benign not sent Estimated Blood Loss (mL): 2 Drain/Tube Type: Other (none) Indications: painful lipomas Findings: benign lipomas as above Complications: none - Other Other Information/Narrative: The patient was properly identified brought to the operating room and placed in supine position. Under mask anesthesia was induced. Sequential compression devices were used. He was prepped and draped in a sterile fashion. Antibiotics were not given. Local anesthetic was given to incision areas. The symptomatic lipomas were marked out prior to surgery. He had a 4 cm lipoma right lower quadrant. 3 cm lipoma epigastrium. Additional 3 3 cm lipomas left upper quadrant to left flank. 3 to 4 cm incisions were made directly over the lipomas in the direction of Mil's lines. The lipomas were all subcutaneous. They were removed completely with blunt dissection Metzenbaum scissors and cautery. Hemostasis was assured. Subcutaneous tissue was closed with interrupted 2-0 Vicryl suture. Buried interrupted subdermal 3-0 Vicryl sutures were then placed. Skin was closed with a running 4-0 Monocryl subcuticular suture. Steri-Strips and dressings were applied. He tolerated the procedure well was awakened and brought to recovery in good condition.
== END 2022-07-17 09:50 | disposition home or self-care (01) ==
LOC: SDS 09:49
PROVIDERS: ATTEND Surgery
PROC: 0JB80ZZ Excision of Abdomen Subcutaneous Tissue and Fascia, Open Approach (ICD-10-PCS; principal; 2022-07-17 11:00)
DX: D17.1 Benign lipomatous neoplasm of skin and subcutaneous tissue of trunk (principal); E66.9 Obesity, unspecified; F17.200 Nicotine dependence, unspecified, uncomplicated; Z68.31 Body mass index [BMI] 31.0-31.9, adult
CPT/HCPCS: 22902; 22903; A9270; J1170; J7120

== ENCOUNTER 2024-05-19 08:00 | Outpatient (CLI) | payer OTHER, MEDICAID | END 2024-05-19 23:52 | disposition home or self-care (01) | LOC: LAB.WCP 08:00 | PROVIDERS: ATTEND Physician Assistant | DX: G89.29 Other chronic pain (principal); Z79.891 Long term (current) use of opiate analgesic; Z79.899 Other long term (current) drug therapy | CPT/HCPCS: 80361; 81599 ==

== ENCOUNTER 2024-06-01 08:00 | Outpatient (CLI) | payer OTHER, MEDICAID | END 2024-06-01 23:59 | disposition home or self-care (01) | LOC: LAB.N 08:00 | PROVIDERS: ATTEND Physician Assistant | DX: G89.29 Other chronic pain (principal); Z79.899 Other long term (current) drug therapy | CPT/HCPCS: 80306; 80361; 80365; 81599 ==